=== PATIENT | male | born 1955 | race American Indian/Alaskan Native ===

== ENCOUNTER 2016-04-27 23:50 | Emergency (ER) | payer MEDICARE ==
[2016-04-28 00:48] LABS: Basophils % (Auto) 0.6 % (0.0-1.8); Eosinophils % (Auto) 3.3 % (0.0-4.3); Hematocrit 39.5 % (35.5-45.6); Hemoglobin 13.5 gm/dl (11.8-15.2); Mean Corpuscular HGB Conc 34 % (32-34); Mean Corpuscular Hemoglobin 33 pg (28-32); Mean Corpuscular Volume 96 fl (84-94); Platelet Count 262 K/mm3 (140-440); Red Blood Count 4.11 M/mm3 (3.65-5.03); White Blood Count 6.2 K/mm3 (4.5-11.0)
[2016-04-28 01:21] LABS: Anion Gap 16 mmol/L; Blood Urea Nitrogen 9 mg/dL (9-20); Calcium 9.2 mg/dL (8.4-10.2); Carbon Dioxide 29 mmol/L (22-30); Glucose 105 mg/dL (75-100); Potassium 4.3 mmol/L (3.6-5.0); Sodium 134 mmol/L (137-145)
[2016-04-28 02:08] VITALS: BP 176/105
--- NOTE | 2016-04-29 08:39 | ED Elopement Review ---
ED Pt Elopement review - Results review Lab results: Laboratory Tests 04/28/16 04/28/16 00:35 00:35 WBC 6.2 RBC 4.11 Hgb 13.5 Hct 39.5 MCV 96 H MCH 33 H MCHC 34 RDW 13.0 L Plt Count 262 Lymph % (Auto) 29.1 [place] % (Auto) 11.8 H Eos % (Auto) 3.3 Baso % (Auto) 0.6 Lymph # 1.8 [place] # 0.7 Eos # 0.2 Baso # 0.0 Seg Neutrophils % 55.2 Seg Neutrophils # 3.4 Sodium 134 L Potassium 4.3 Chloride 93.0 L Carbon Dioxide 29 Anion Gap 16 BUN 9 Creatinine 0.9 Estimated GFR > 60 BUN/Creatinine Ratio 10.00 Glucose 105 H Calcium 9.2 Troponin T < 0.010 - Call Back decision Pt Call Back Decision: No action required
== END 2016-04-28 06:30 | disposition left against medical advice (07) ==
LOC: ED 23:50
DX: R07.1 Chest pain on breathing (principal); Z98.890 Other specified postprocedural states; Z53.21 Procedure and treatment not carried out due to patient leaving prior to being seen by health care provider
CPT/HCPCS: 36415; 80048; 84484; 85025; 93005; 93010